=== PATIENT | female | born 1955 | race Caucasian/White ===

== ENCOUNTER 2017-08-01 13:42 | Observation (INO) | payer BC ==
[2017-08-01] MEDS ORDERED: Sodium Chloride 0.9% 1,000 ML IV ONE (13:48)
--- NOTE | 2017-08-01 13:56 | EDM.PDOC ---
ED HPI GENERAL MEDICAL PROBLEM - General Chief Complaint: Syncope Stated Complaint: VERTIGO Time Seen by Provider: 08/01/17 13:44 - History of Present Illness INITIAL COMMENTS - FREE TEXT/NARRATIVE: HISTORY AND PHYSICAL: History of present illness: Patient is a 61-year-old white female history of hypertension who presents after syncopal episode she was at the clinic being evaluated for recent febrile illness she had some routine labs clearance of the blood draw she was discharged and in the elevator when she lost consciousness this was relatively brief she denies any clearly associated trauma and presents now with some generalized weakness she denies chest pain palpitations she denies headache she states she was noted to have blood in her urine but no evidence of infection and other routine lab results were pending. Review of systems: As per history of present illness and below otherwise all systems reviewed and negative. Past medical history: As per history of present illness and as reviewed below otherwise noncontributory. Surgical history: As per history of present illness and as reviewed below otherwise noncontributory. Social history: No reported history of drug or alcohol abuse. Family history: As per history of present illness and as reviewed below otherwise noncontributory. Physical exam: HEENT: Atraumatic, normocephalic, pupils reactive, negative for conjunctival pallor or scleral icterus, mucous membranes moist, throat clear, neck supple, nontender, trachea midline. Lungs: Clear to auscultation, breath sounds equal bilaterally, chest nontender. Heart: S1S2, regular, negative for clicks, rubs, or JVD. Abdomen: Soft, nondistended, nontender. Negative for masses or hepatosplenomegaly. Negative for costovertebral tenderness. Pelvis: Stable nontender. Genitourinary: Deferred. Rectal: Deferred. Extremities: Atraumatic, negative for cords or calf pain. Neurovascular unremarkable. Neuro: Awake, alert, oriented. Cranial nerves II through XII unremarkable. Cerebellum unremarkable. Motor and sensory unremarkable throughout. Exam nonfocal. Diagnostics: CBC CMP PT/INR troponin chest x-ray CT brain CT abdomen and pelvis orthostatic vital signs Therapeutics: Saline 1 L bolus Impression: #1 syncope #2 history of hematuria for 3 history of fever Definitive disposition and diagnosis as appropriate pending reevaluation and review of above. - Related Data Allergies Allergy/AdvReac Type Severity Reaction Status Date / Time No Known Allergies Allergy Verified 08/01/17 14:03 Home Meds: Home Meds Aspirin [Children's Aspirin] 81 mg PO DAILY 11/30/13 [History] Lisinopril 20 mg PO DAILY 11/30/13 [History] Polyethylene Glycol 3350 [MiraLAX] 1 capful PO DAILY 11/30/13 [History] atorvaSTATin Calcium [Atorvastatin Calcium] 10 mg PO DAILY 11/30/13 [History] ED ROS GENERAL - Review of Systems Review Of Systems: ROS reveals no pertinent complaints other than HPI. ED EXAM, GENERAL - Physical Exam Exam: See Below (dictation) Course - Vital Signs Last Recorded V/S: Last Vital Signs Temp 36.8 C 08/01/17 15:19 Pulse 87 08/01/17 15:19 Resp 18 08/01/17 15:19 BP 101/56 L 08/01/17 15:19 Pulse Ox 96 08/01/17 15:19 Orthostatic Blood Pressure [ 98/56 Standing] Orthostatic Blood Pressure [ 93/55 Sitting] Orthostatic Blood Pressure [ 94/55 Supine] - Orders/Labs/Meds Orders: Active Orders 24 hr Category Date Time Status EKG Documentation Completion [RC] STAT Care 08/01/17 13:47 Active Pulse Oximetry [RC] ASDIRECTED Care 08/01/17 13:47 Active Abdomen Pelvis wo Cont [CT] Stat Exams 08/01/17 13:48 Taken CULTURE BLOOD [BC] Stat Lab 08/01/17 14:00 Received CULTURE BLOOD [BC] Stat Lab 08/01/17 14:18 Received UA W/MICROSCOPIC [URIN] Stat Lab 08/01/17 15:19 Ordered Levofloxacin/Dextrose 5%-Water [Levaquin in D5W 750 MG/ Med 08/01/17 15:35 Active 150 ML] 750 mg Premix Bag 1 bag IV ONETIME Blood Culture x2 Reflex Set [OM.PC] Stat Oth 08/01/17 13:57 Ordered Medication Orders Levofloxacin/Dextrose 750 mg/ (Premix) 150 mls @ 100 mls/hr IV ONETIME ONE Stop: 08/01/17 17:04 Labs: Laboratory Tests 08/01/17 08/01/17 08/01/17 Range/Units 14:00 14:00 14:00 WBC 11.09 H (4.0-11.0) K/uL RBC 3.80 L (4.30-5.90) M/uL Hgb 11.9 L (12.0-16.0) g/dL Hct 34.8 L (36.0-46.0) % MCV 91.6 (80.0-98.0) fL MCH 31.3 (27.0-32.0) pg MCHC 34.2 (31.0-37.0) g/dL RDW Std Deviation 42.6 (28.0-62.0) fl RDW Coeff of Ziggy 13 (11.0-15.0) % Plt Count 152 (150-400) K/uL MPV 9.80 (7.40-12.00) fL Neut % (Auto) 82.3 H (48.0-80.0) % Lymph % (Auto) 9.7 L (16.0-40.0) % [place] % (Auto) 7.7 (0.0-15.0) % Eos % (Auto) 0.1 (0.0-7.0) % Baso % (Auto) 0.2 (0.0-1.5) % Neut # (Auto) 9.1 H (1.4-5.7) K/uL Lymph # (Auto) 1.1 (0.6-2.4) K/uL [place] # (Auto) 0.9 H (0.0-0.8) K/uL Eos # (Auto) 0.0 (0.0-0.7) K/uL Baso # (Auto) 0.0 (0.0-0.1) K/uL Nucleated RBC % 0.0 /100WBC Nucleated RBCs # 0 K/uL Lactate 0.7 (0.20-2.00) mmol/L Sodium 137 (136-145) mmol/L Potassium 3.4 L (3.5-5.1) mmol/L Chloride 101 (98-107) mmol/L Carbon Dioxide 21.2 (21.0-32.0) mmol/L BUN 12 (7.0-18.0) mg/dL Creatinine 0.8 (0.6-1.0) mg/dL Est Cr Clr Drug Dosing 69.13 mL/min Estimated GFR (MDRD) > 60.0 ml/min Glucose 139 H (74-106) mg/dL Calcium 8.4 L (8.5-10.1) mg/dL Total Bilirubin 0.6 (0.2-1.0) mg/dL AST 20 (15-37) IU/L ALT 28 (14-63) IU/L Alkaline Phosphatase 69 (46-116) U/L Troponin I < 0.050 (0.000-0.056) ng/mL Total Protein 6.6 (6.4-8.2) g/dL Albumin 3.5 (3.4-5.0) g/dL Globulin 3.1 (2.0-3.5) g/dL Albumin/Globulin Ratio 1.1 L (1.3-2.8) Urine Color Urine Appearance Urine pH (5.0-8.0) Ur Specific [place] (1.001-1.035) Urine Protein (NEGATIVE) mg/dL Urine Glucose (UA) (NEGATIVE) mg/dL Urine Ketones (NEGATIVE) mg/dL Urine Occult Blood (NEGATIVE) Urine Nitrite (NEGATIVE) Urine Bilirubin (NEGATIVE) Urine Urobilinogen (<2.0) EU/dL Ur Leukocyte Esterase (NEGATIVE) 08/01/17 Range/Units 15:19 WBC (4.0-11.0) K/uL RBC (4.30-5.90) M/uL Hgb (12.0-16.0) g/dL Hct (36.0-46.0) % MCV (80.0-98.0) fL MCH (27.0-32.0) pg MCHC (31.0-37.0) g/dL RDW Std Deviation (28.0-62.0) fl RDW Coeff of Ziggy (11.0-15.0) % Plt Count (150-400) K/uL MPV (7.40-12.00) fL Neut % (Auto) (48.0-80.0) % Lymph % (Auto) (16.0-40.0) % [place] % (Auto) (0.0-15.0) % Eos % (Auto) (0.0-7.0) % Baso % (Auto) (0.0-1.5) % Neut # (Auto) (1.4-5.7) K/uL Lymph # (Auto) (0.6-2.4) K/uL [place] # (Auto) (0.0-0.8) K/uL Eos # (Auto) (0.0-0.7) K/uL Baso # (Auto) (0.0-0.1) K/uL Nucleated RBC % /100WBC Nucleated RBCs # K/uL Lactate (0.20-2.00) mmol/L Sodium (136-145) mmol/L Potassium (3.5-5.1) mmol/L Chloride (98-107) mmol/L Carbon Dioxide (21.0-32.0) mmol/L BUN (7.0-18.0) mg/dL Creatinine (0.6-1.0) mg/dL Est Cr Clr Drug Dosing mL/min Estimated GFR (MDRD) ml/min Glucose (74-106) mg/dL Calcium (8.5-10.1) mg/dL Total Bilirubin (0.2-1.0) mg/dL AST (15-37) IU/L ALT (14-63) IU/L Alkaline Phosphatase (46-116) U/L Troponin I (0.000-0.056) ng/mL Total Protein (6.4-8.2) g/dL Albumin (3.4-5.0) g/dL Globulin (2.0-3.5) g/dL Albumin/Globulin Ratio (1.3-2.8) Urine Color YELLOW Urine Appearance CLEAR Urine pH 5.5 (5.0-8.0) Ur Specific [place] 1.020 (1.001-1.035) Urine Protein NEGATIVE (NEGATIVE) mg/dL Urine Glucose (UA) NEGATIVE (NEGATIVE) mg/dL Urine Ketones 15 H (NEGATIVE) mg/dL Urine Occult Blood TRACE-INTACT (NEGATIVE) Urine Nitrite NEGATIVE (NEGATIVE) Urine Bilirubin NEGATIVE (NEGATIVE) Urine Urobilinogen 0.2 (<2.0) EU/dL Ur Leukocyte Esterase NEGATIVE (NEGATIVE) Meds: Medications Generic Name Dose Route Start Last Admin Trade Name Freq PRN Reason Stop Dose Admin Levofloxacin/Dextrose 750 mg/ 150 mls @ 100 mls/hr 08/01/17 15:35 Premix IV 08/01/17 17:04 ONETIME ONE Discontinued Medications Generic Name Dose Route Start Last Admin Trade Name Freq PRN Reason Stop Dose Admin Sodium Chloride 1,000 mls @ 999 mls/hr 08/01/17 13:48 08/01/17 14:00 Normal Saline IV 08/01/17 14:48 999 mls/hr STAT ONE Administration Departure - Departure Time of Disposition: 15:39 Disposition: Refer to Observation Condition: Good Clinical Impression: Pneumonia - Discharge Information Referrals: Shaw Lomeli MD [Primary Care Provider] - Forms: ED Department Discharge - My Orders Last 24 Hours: My Active Orders 08/01/17 13:47 EKG Documentation Completion [RC] STAT Pulse Oximetry [RC] ASDIRECTED 08/01/17 13:48 Abdomen Pelvis wo Cont [CT] Stat 08/01/17 13:57 Blood Culture x2 Reflex Set [OM.PC] Stat 08/01/17 14:00 CULTURE BLOOD [BC] Stat 08/01/17 14:18 CULTURE BLOOD [BC] Stat 08/01/17 15:19 UA W/MICROSCOPIC [URIN] Stat 08/01/17 15:35 Levofloxacin/Dextrose 5%-Water [Levaquin in D5W 750 MG/150 ML] 750 mg Premix Bag 1 bag IV ONETIME - Assessment/Plan Last 24 Hours: My Active Orders 08/01/17 13:47 EKG Documentation Completion [RC] STAT Pulse Oximetry [RC] ASDIRECTED 08/01/17 13:48 Abdomen Pelvis wo Cont [CT] Stat 08/01/17 13:57 Blood Culture x2 Reflex Set [OM.PC] Stat 08/01/17 14:00 CULTURE BLOOD [BC] Stat 08/01/17 14:18 CULTURE BLOOD [BC] Stat 08/01/17 15:19 UA W/MICROSCOPIC [URIN] Stat 08/01/17 15:35 Levofloxacin/Dextrose 5%-Water [Levaquin in D5W 750 MG/150 ML] 750 mg Premix Bag 1 bag IV ONETIME
--- NOTE | 2017-08-01 14:39 | CR ---
Normal chest Clinical history: Chest pain and shortness of breath Comparison: None. Findings: The costophrenic angles are sharp and the cardiac mediastinum is normal and lungs are clear . Cardiac monitoring leads are in place. Impression: No acute cardiac disease
[2017-08-01 14:45] LABS: CHLORIDE,CL 101 mmol/L (98-107); SODIUM,NA 137 mmol/L (136-145)
--- NOTE | 2017-08-01 15:23 | CT ---
CT brain scan Clinical history: Faint Comparison: None Findings: Computed tomographic sections of the brain demonstrate no mass edema hemorrhage or space-oc cupying abnormality. Calvarium and paranasal sinuses and mastoids appear normal. Impression: Normal exam
[2017-08-01] MEDS ORDERED: Levofloxacin/Dextrose 5%-Water 750 MG in Premix Bag 1 BAG IV ONE (15:35)
--- NOTE | 2017-08-01 15:42 | CT ---
CT scan of the abdomen and pelvis Clinical history: Pain possible kidney stone Comparison: No recent. Findings: Images through the lung bases demonstrate a right lower lobe posterior pneumonia. A graft s lito through the abdomen demonstrates normal liver spleen pancreas and incidental single large gal lstone. The kidneys are without evidence of hydronephrosis or hydroureter. Scanning through the lower abdomen into the pelvis and demonstrates a prominent cystic structure beh ind the uterus measuring 68 mm in dimension. No solid mural components are identified. There may be 1 or 2 septations. There is a solitary punctate calcification posteriorly within this lesion Impression: Right lower lung pneumonia posteriorly. No evidence of renal or ureteral calculus. 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
--- NOTE | 2017-08-01 16:13 | PCM.HP ---
H&P History of Present Illness - General Date of Service: 08/01/17 Admit Problem/Dx: Admission Diagnosis/Problem Admission Diagnosis/Problem Pneumonia Source of Information: Patient History Limitations: Reports: No Limitations - History of Present Illness Initial Comments - Free Text/Narative: 61 yo fm with history of HTN, CAD and presumed HLD is admitted for CAP and syncope. She states that for the last 3 days she has had fever ranging up to 102 degrees, chills, weakness. She denies any associated sob, cough, nausea, vomiting, diarrhea, dysuria. She has had some decreased appetite but has been drinking fluids. due to her fevers she decided to book appointment with her pcp at [place] which was today. Following the appointment she was instructed to proceed to lab for blood tests and was told she would be contacted with results. While in the elevator she had syncopal episode that lasted less than 1 minute. She was instructed by [place] provider to proceed to [facility] ED for further evaluation. In the ED she had CBC, CMP, Troponin, INR, CXR, CT brain, CT abdomen pelvis, and Orthostatic vitals done. She was found to have borderline Leukocytosis with WBC cnt 11.1 and hypokalemia with K 3.4. . CXR was negative for acute changes but CT abdomen-pelvis did reveal RLL infiltrate. Her BP has been low ranging from 95-105/50's but orthostatic vitals were relatively stable. She was given IV NS bolus and single dose of Levaquin. - Related Data Allergies/Adverse Reactions: Allergies Allergy/AdvReac Type Severity Reaction Status Date / Time No Known Allergies Allergy Verified 08/01/17 14:03 Home Medications: Home Meds Aspirin [Children's Aspirin] 81 mg PO DAILY 11/30/13 [History] Lisinopril 20 mg PO DAILY 11/30/13 [History] Polyethylene Glycol 3350 [MiraLAX] 1 capful PO DAILY 11/30/13 [History] atorvaSTATin Calcium [Atorvastatin Calcium] 10 mg PO DAILY 11/30/13 [History] Past Medical History HEENT History: Reports: Impaired Vision Cardiovascular History: Reports: High Cholesterol, Hypertension Gastrointestinal History: Reports: Other (See Below) Other Gastrointestinal History: constipation [employer] MANAGER History: Reports: - Past Surgical History HEENT Surgical History: Reports: Tonsillectomy Female Surgical History: Reports: Other (See Below) Other Female Surgeries/Procedures: ovarian cyst removal Social & Family History - Family History Family Medical History: Noncontributory - Tobacco Use Smoking Status *Q: Former Smoker Used Tobacco, but Quit: Yes Month/Year Tobacco Last Used: 02/2010 - Caffeine Use Caffeine Use: Reports: Soda - Recreational Drug Use Recreational Drug Use: No H&P Review of Systems - Review of Systems: Review Of Systems: See Below General: Reports: Fever, Weakness, Decreased Appetite HEENT: Reports: No Symptoms Pulmonary: Reports: No Symptoms Cardiovascular: Reports: No Symptoms Gastrointestinal: Reports: No Symptoms Genitourinary: Reports: No Symptoms Musculoskeletal: Reports: No Symptoms Skin: Reports: No Symptoms Psychiatric: Reports: No Symptoms Neurological: Reports: No Symptoms Hematologic/Lymphatic: Reports: No Symptoms Immunologic: Reports: No Symptoms Exam - Exam Exam: See Below - Vital Signs Vital Signs: Last Vital Signs Temp 36.8 C 08/01/17 15:19 Pulse 87 08/01/17 15:19 Resp 18 08/01/17 15:19 BP 101/56 L 08/01/17 15:19 Pulse Ox 96 08/01/17 15:19 Orthostatic Blood Pressure [ 98/56 Standing] Orthostatic Blood Pressure [ 93/55 Sitting] Orthostatic Blood Pressure [ 94/55 Supine] Weight: 75.296 kg - Exam General: Alert, Oriented, Cooperative HEENT: Conjunctiva Clear, EACs Clear, EOMI, Hearing Intact, Mucosa Moist & [place] , Nares Patent, Normal Nasal Septum, Posterior Pharynx Clear, Pupils Equal, Pupils Reactive Neck: Supple, Trachea Midline Lungs: Other (Asymmetric, absent breath sounds at RML/RLL with coarse crackles, no wheezing) Cardiovascular: Regular Rate, Regular Rhythm GI/Abdominal Exam: Normal Bowel Sounds, Soft, Non-Tender, No Organomegaly Back Exam: Normal Inspection Extremities: Normal Inspection, Normal Capillary Refill Peripheral Pulses: 1+: Dorsalis Pedis (L), Dorsalis Pedis (R) Skin: Warm, Dry, Intact Neurological: Cranial Nerves Intact, Reflexes Equal Bilateral Psychiatric: Alert, Normal Affect, Normal Mood - Patient Data Lab Results Last 24 hrs: Laboratory Results - last 24 hr 08/01/17 08/01/17 08/01/17 Range/Units 14:00 14:00 14:00 WBC 11.09 H (4.0-11.0) K/uL RBC 3.80 L (4.30-5.90) M/uL Hgb 11.9 L (12.0-16.0) g/dL Hct 34.8 L (36.0-46.0) % MCV 91.6 (80.0-98.0) fL MCH 31.3 (27.0-32.0) pg MCHC 34.2 (31.0-37.0) g/dL RDW Std Deviation 42.6 (28.0-62.0) fl RDW Coeff of Ziggy 13 (11.0-15.0) % Plt Count 152 (150-400) K/uL MPV 9.80 (7.40-12.00) fL Neut % (Auto) 82.3 H (48.0-80.0) % Lymph % (Auto) 9.7 L (16.0-40.0) % [place] % (Auto) 7.7 (0.0-15.0) % Eos % (Auto) 0.1 (0.0-7.0) % Baso % (Auto) 0.2 (0.0-1.5) % Neut # (Auto) 9.1 H (1.4-5.7) K/uL Lymph # (Auto) 1.1 (0.6-2.4) K/uL [place] # (Auto) 0.9 H (0.0-0.8) K/uL Eos # (Auto) 0.0 (0.0-0.7) K/uL Baso # (Auto) 0.0 (0.0-0.1) K/uL Nucleated RBC % 0.0 /100WBC Nucleated RBCs # 0 K/uL Lactate 0.7 (0.20-2.00) mmol/L Sodium 137 (136-145) mmol/L Potassium 3.4 L (3.5-5.1) mmol/L Chloride 101 (98-107) mmol/L Carbon Dioxide 21.2 (21.0-32.0) mmol/L BUN 12 (7.0-18.0) mg/dL Creatinine 0.8 (0.6-1.0) mg/dL Est Cr Clr Drug Dosing 69.13 mL/min Estimated GFR (MDRD) > 60.0 ml/min Glucose 139 H (74-106) mg/dL Calcium 8.4 L (8.5-10.1) mg/dL Total Bilirubin 0.6 (0.2-1.0) mg/dL AST 20 (15-37) IU/L ALT 28 (14-63) IU/L Alkaline Phosphatase 69 (46-116) U/L Troponin I < 0.050 (0.000-0.056) ng/mL Total Protein 6.6 (6.4-8.2) g/dL Albumin 3.5 (3.4-5.0) g/dL Globulin 3.1 (2.0-3.5) g/dL Albumin/Globulin Ratio 1.1 L (1.3-2.8) Urine Color Urine Appearance Urine pH (5.0-8.0) Ur Specific [place] (1.001-1.035) Urine Protein (NEGATIVE) mg/dL Urine Glucose (UA) (NEGATIVE) mg/dL Urine Ketones (NEGATIVE) mg/dL Urine Occult Blood (NEGATIVE) Urine Nitrite (NEGATIVE) Urine Bilirubin (NEGATIVE) Urine Urobilinogen (<2.0) EU/dL Ur Leukocyte Esterase (NEGATIVE) Urine RBC (0-2/HPF) Urine WBC (0-5/HPF) Ur Epithelial Cells (NONE-FEW) Urine Bacteria (NEGATIVE) 08/01/17 Range/Units 15:19 WBC (4.0-11.0) K/uL RBC (4.30-5.90) M/uL Hgb (12.0-16.0) g/dL Hct (36.0-46.0) % MCV (80.0-98.0) fL MCH (27.0-32.0) pg MCHC (31.0-37.0) g/dL RDW Std Deviation (28.0-62.0) fl RDW Coeff of Ziggy (11.0-15.0) % Plt Count (150-400) K/uL MPV (7.40-12.00) fL Neut % (Auto) (48.0-80.0) % Lymph % (Auto) (16.0-40.0) % [place] % (Auto) (0.0-15.0) % Eos % (Auto) (0.0-7.0) % Baso % (Auto) (0.0-1.5) % Neut # (Auto) (1.4-5.7) K/uL Lymph # (Auto) (0.6-2.4) K/uL [place] # (Auto) (0.0-0.8) K/uL Eos # (Auto) (0.0-0.7) K/uL Baso # (Auto) (0.0-0.1) K/uL Nucleated RBC % /100WBC Nucleated RBCs # K/uL Lactate (0.20-2.00) mmol/L Sodium (136-145) mmol/L Potassium (3.5-5.1) mmol/L Chloride (98-107) mmol/L Carbon Dioxide (21.0-32.0) mmol/L BUN (7.0-18.0) mg/dL Creatinine (0.6-1.0) mg/dL Est Cr Clr Drug Dosing mL/min Estimated GFR (MDRD) ml/min Glucose (74-106) mg/dL Calcium (8.5-10.1) mg/dL Total Bilirubin (0.2-1.0) mg/dL AST (15-37) IU/L ALT (14-63) IU/L Alkaline Phosphatase (46-116) U/L Troponin I (0.000-0.056) ng/mL Total Protein (6.4-8.2) g/dL Albumin (3.4-5.0) g/dL Globulin (2.0-3.5) g/dL Albumin/Globulin Ratio (1.3-2.8) Urine Color YELLOW Urine Appearance CLEAR Urine pH 5.5 (5.0-8.0) Ur Specific [place] 1.020 (1.001-1.035) Urine Protein NEGATIVE (NEGATIVE) mg/dL Urine Glucose (UA) NEGATIVE (NEGATIVE) mg/dL Urine Ketones 15 H (NEGATIVE) mg/dL Urine Occult Blood TRACE-INTACT (NEGATIVE) Urine Nitrite NEGATIVE (NEGATIVE) Urine Bilirubin NEGATIVE (NEGATIVE) Urine Urobilinogen 0.2 (<2.0) EU/dL Ur Leukocyte Esterase NEGATIVE (NEGATIVE) Urine RBC 0-1 (0-2/HPF) Urine WBC 0-1 (0-5/HPF) Ur Epithelial Cells RARE (NONE-FEW) Urine Bacteria FEW (NEGATIVE) Result Diagrams: 08/01/17 14:00 08/01/17 14:00 Problem List Initiated/Reviewed/Updated: Yes Orders Last 24hrs: Active Orders 24 hr Category Date Time Status Patient Status [ADT] Stat ADT 08/01/17 15:40 Active EKG Documentation Completion [RC] STAT Care 08/01/17 13:47 Active Pulse Oximetry [RC] ASDIRECTED Care 08/01/17 13:47 Active CULTURE BLOOD [BC] Stat Lab 08/01/17 14:00 Received CULTURE BLOOD [BC] Stat Lab 08/01/17 14:18 Received UA W/MICROSCOPIC [URIN] Stat Lab 08/01/17 15:19 Ordered Levofloxacin/Dextrose 5%-Water [Levaquin in D5W 750 MG/ Med 08/01/17 15:35 Active 150 ML] 750 mg Premix Bag 1 bag IV ONETIME Blood Culture x2 Reflex Set [OM.PC] Stat Oth 08/01/17 13:57 Ordered Medication Orders Levofloxacin/Dextrose 750 mg/ (Premix) 150 mls @ 100 mls/hr IV ONETIME ONE Stop: 08/01/17 17:04 Last Admin: 08/01/17 15:41 Dose: 100 mls/hr Assessment/Plan Comment:: 61 yo fm with history of HTN and CAD admitted for CAP and syncope. #CAP #Leukocytosis, presumed secondary to above -seen in RLL on CT Abd-pelvis -WBC cound 11.1K -BC obtained in ED -received IV NS 1 L & Levaquin 750 mg IV single dose in ED Plan: -admit to obs -obtain ABG -continue IV NS at 100 ml/hr -continue Levaquin 750 mg QD -start duonebs PRN for sob -obtain sputum culture -f/u blood cultures #Syncope #Diastolic Hypotension -likely secondary to dehydration -EKG NSR, troponin negative Plan: -cardiac monitoring -serial troponins -repeat ortho vitals #Hypokalemia -administer KCl 40 meq #HTN -hold home Lisnopril and resume when bp increases #CAD -resume home ASA and Atorvastatin diet:regular code: full DVT prophylaxis: Lovenox
[2017-08-01] MEDS ORDERED: Acetaminophen 325 MG Tab PO PRN (16:14)
[2017-08-01] MEDS ORDERED: Albuterol/Ipratropium 3.0-0.5 MG/3 ML Neb Soln NEB PRN (16:14)
[2017-08-01] MEDS ORDERED: Docusate Sodium 100 MG Cap PO PRN (16:14)
[2017-08-01] MEDS ORDERED: Enoxaparin 40 MG/0.4 ML Syringe SUBCUT SCH (16:15)
[2017-08-01] MEDS: Sodium Chloride 0.9% 1,000 ML IV SCH (17:52)
[2017-08-01] MEDS ORDERED: Potassium Chloride 10% 20 MEQ/15 ML Soln 30 ML UD Cup PO ONE (17:59)
[2017-08-02] MEDS: Sodium Chloride 0.9% 1,000 ML IV SCH (04:15)
[2017-08-02 06:32] LABS: CHLORIDE,CL 109 mmol/L (98-107); SODIUM,NA 140 mmol/L (136-145)
[2017-08-02] MEDS ORDERED: Lisinopril 10 MG Tab PO ONE (08:12)
--- NOTE | 2017-08-02 09:36 | PCM.DCSUM1 ---
Discharge Summary - Hospital Course Free Text/Narrative:: 61 yo fm with history of HTN, CAD and presumed HLD is admitted for CAP and syncope. She states that for the last 3 days she has had fever ranging up to 102 degrees, chills, weakness. She denies any associated sob, cough, nausea, vomiting, diarrhea, dysuria. She has had some decreased appetite but has been drinking fluids. Due to her fevers she decided to book appointment with her pcp [facility] which was today. Following the appointment she was instructed to proceed to lab for blood tests and was told she would be contacted with results. While in the elevator she had syncopal episode that lasted less than 1 minute. She was instructed by [place] provider to proceed to [facility] ED for further evaluation. In the ED she had CBC, CMP, Troponin, INR, CXR, CT brain, CT abdomen pelvis, and Orthostatic vitals done. She was found to have borderline Leukocytosis with WBC cnt 11.1 and hypokalemia with K 3.4. . CXR was negative for acute changes but CT abdomen-pelvis did reveal RLL infiltrate. Her BP has been low ranging from 95-105/50's but orthostatic vitals were relatively stable. She was given IV NS bolus and single dose of Levaquin. On the floor she was started on continuous IVF and placed on cardiac monitoring. Following day she felt much better and stated that she was ready to go her home. Her leukocytosis resolved, and she remained afebrile throughout the night. She was discharged home on Levaquin 750 mg QD for 4 days to total 5 days of therapy. Her f/u was scheduled with her PCP for 1 week. Discharge Diagnosis #CAP, RLL, improving #Leukocytosis, resolved -discharge home on Levaquin PO QD for 4 days -consider repeat imaging in 4 weeks #Syncope -likely secondary to dehydration -serial troponin negative -f/u with PCP #First Degree AV Block #PVC -on telemetry, no chest pain/palpitations/sob -educated patient -f/u with PCP #Hypokalemia -corrected #Hx HTN -resume home Lisinopril 10 mg QD #Hx CAD -resume home ASA and Atorvastatin - Discharge Data Discharge Date: 08/02/17 Discharge Disposition: Home, Self-Care 01 Condition: Good - Patient Instructions Diet: Regular Diet as Tolerated Activity: As Tolerated, Rest and Relax Today Driving: May Drive Today Showering/Bathing: May Shower Notify Provider of: Fever, Increased Pain, Swelling and Redness, Drainage, Nausea and/or Vomiting - Discharge Plan Prescriptions/Med Rec: Levofloxacin 750 mg PO DAILY 4 Days #4 tablet Home Medications: Home Meds Aspirin [Children's Aspirin] 81 mg PO BEDTIME 11/30/13 [History] Lisinopril 10 mg PO DAILY 11/30/13 [History] Polyethylene Glycol 3350 [MiraLAX] 1 capful PO DAILY 11/30/13 [History] atorvaSTATin Calcium [Atorvastatin Calcium] 10 mg PO BEDTIME 11/30/13 [History] Levofloxacin 750 mg PO DAILY 4 Days #4 tablet 08/02/17 [Rx] Patient Handouts: Community-Acquired Pneumonia, Adult, [id number] Referrals: Shaw Lomeli MD [Primary Care Provider] - 08/09/17 1:45 pm - Discharge Summary/Plan Comment DC Time >30 min.: No - General Info Date of Service: 08/02/17 Functional Status: Reports: Pain Controlled, Tolerating Diet, Ambulating, Urinating - Review of Systems General: Reports: No Symptoms HEENT: Reports: No Symptoms Pulmonary: Reports: No Symptoms Cardiovascular: Reports: No Symptoms Gastrointestinal: Reports: No Symptoms Genitourinary: Reports: No Symptoms Musculoskeletal: Reports: No Symptoms Skin: Reports: No Symptoms Neurological: Reports: No Symptoms Psychiatric: Reports: No Symptoms - Patient Data Vitals - Most Recent: Last Vital Signs Temp 36.6 C 08/02/17 04:00 Pulse 71 08/02/17 04:00 Resp 16 08/02/17 04:00 BP 110/52 L 08/02/17 09:09 Pulse Ox 95 08/02/17 04:00 Orthostatic Blood Pressure [ 98/56 Standing] Orthostatic Blood Pressure [ 93/55 Sitting] Orthostatic Blood Pressure [ 94/55 Supine] Weight - Most Recent: 75.296 kg I&O - Last 24 hours: Intake & Output 08/01/17 08/02/17 08/02/17 22:59 06:59 14:59 Intake Total 2070 Output Total 1750 Balance 320 Lab Results - Last 24 hrs: Laboratory Results - last 24 hr 08/01/17 08/01/17 08/01/17 Range/Units 14:00 14:00 14:00 WBC 11.09 H (4.0-11.0) K/uL RBC 3.80 L (4.30-5.90) M/uL Hgb 11.9 L (12.0-16.0) g/dL Hct 34.8 L (36.0-46.0) % MCV 91.6 (80.0-98.0) fL MCH 31.3 (27.0-32.0) pg MCHC 34.2 (31.0-37.0) g/dL RDW Std Deviation 42.6 (28.0-62.0) fl RDW Coeff of Ziggy 13 (11.0-15.0) % Plt Count 152 (150-400) K/uL MPV 9.80 (7.40-12.00) fL Neut % (Auto) 82.3 H (48.0-80.0) % Lymph % (Auto) 9.7 L (16.0-40.0) % [place] % (Auto) 7.7 (0.0-15.0) % Eos % (Auto) 0.1 (0.0-7.0) % Baso % (Auto) 0.2 (0.0-1.5) % Neut # (Auto) 9.1 H (1.4-5.7) K/uL Lymph # (Auto) 1.1 (0.6-2.4) K/uL [place] # (Auto) 0.9 H (0.0-0.8) K/uL Eos # (Auto) 0.0 (0.0-0.7) K/uL Baso # (Auto) 0.0 (0.0-0.1) K/uL Nucleated RBC % 0.0 /100WBC Nucleated RBCs # 0 K/uL ABG pH (7.35-7.45) ABG pCO2 (35-45) mmHG ABG pO2 (75-100) mmHG ABG HCO3 (22-26) mEq/L ABG Total CO2 ABG Base Excess (-2.0-2.0) Lactate 0.7 (0.20-2.00) mmol/L Sodium 137 (136-145) mmol/L Potassium 3.4 L (3.5-5.1) mmol/L Chloride 101 (98-107) mmol/L Carbon Dioxide 21.2 (21.0-32.0) mmol/L BUN 12 (7.0-18.0) mg/dL Creatinine 0.8 (0.6-1.0) mg/dL Est Cr Clr Drug Dosing 69.13 mL/min Estimated GFR (MDRD) > 60.0 ml/min Glucose 139 H (74-106) mg/dL Calcium 8.4 L (8.5-10.1) mg/dL Magnesium (1.5-2.0) mg/dL Total Bilirubin 0.6 (0.2-1.0) mg/dL AST 20 (15-37) IU/L ALT 28 (14-63) IU/L Alkaline Phosphatase 69 (46-116) U/L Troponin I < 0.050 (0.000-0.056) ng/mL Total Protein 6.6 (6.4-8.2) g/dL Albumin 3.5 (3.4-5.0) g/dL Globulin 3.1 (2.0-3.5) g/dL Albumin/Globulin Ratio 1.1 L (1.3-2.8) Urine Color Urine Appearance Urine pH (5.0-8.0) Ur Specific [place] (1.001-1.035) Urine Protein (NEGATIVE) mg/dL Urine Glucose (UA) (NEGATIVE) mg/dL Urine Ketones (NEGATIVE) mg/dL Urine Occult Blood (NEGATIVE) Urine Nitrite (NEGATIVE) Urine Bilirubin (NEGATIVE) Urine Urobilinogen (<2.0) EU/dL Ur Leukocyte Esterase (NEGATIVE) Urine RBC (0-2/HPF) Urine WBC (0-5/HPF) Ur Epithelial Cells (NONE-FEW) Urine Bacteria (NEGATIVE) 08/01/17 08/01/17 08/01/17 Range/Units 14:00 15:19 18:05 WBC (4.0-11.0) K/uL RBC (4.30-5.90) M/uL Hgb (12.0-16.0) g/dL Hct (36.0-46.0) % MCV (80.0-98.0) fL MCH (27.0-32.0) pg MCHC (31.0-37.0) g/dL RDW Std Deviation (28.0-62.0) fl RDW Coeff of Ziggy (11.0-15.0) % Plt Count (150-400) K/uL MPV (7.40-12.00) fL Neut % (Auto) (48.0-80.0) % Lymph % (Auto) (16.0-40.0) % [place] % (Auto) (0.0-15.0) % Eos % (Auto) (0.0-7.0) % Baso % (Auto) (0.0-1.5) % Neut # (Auto) (1.4-5.7) K/uL Lymph # (Auto) (0.6-2.4) K/uL [place] # (Auto) (0.0-0.8) K/uL Eos # (Auto) (0.0-0.7) K/uL Baso # (Auto) (0.0-0.1) K/uL Nucleated RBC % /100WBC Nucleated RBCs # K/uL ABG pH (7.35-7.45) ABG pCO2 (35-45) mmHG ABG pO2 (75-100) mmHG ABG HCO3 (22-26) mEq/L ABG Total CO2 ABG Base Excess (-2.0-2.0) Lactate (0.20-2.00) mmol/L Sodium (136-145) mmol/L Potassium (3.5-5.1) mmol/L Chloride (98-107) mmol/L Carbon Dioxide (21.0-32.0) mmol/L BUN (7.0-18.0) mg/dL Creatinine (0.6-1.0) mg/dL Est Cr Clr Drug Dosing mL/min Estimated GFR (MDRD) ml/min Glucose (74-106) mg/dL Calcium (8.5-10.1) mg/dL Magnesium 1.6 (1.5-2.0) mg/dL Total Bilirubin (0.2-1.0) mg/dL AST (15-37) IU/L ALT (14-63) IU/L Alkaline Phosphatase (46-116) U/L Troponin I < 0.050 (0.000-0.056) ng/mL Total Protein (6.4-8.2) g/dL Albumin (3.4-5.0) g/dL Globulin (2.0-3.5) g/dL Albumin/Globulin Ratio (1.3-2.8) Urine Color YELLOW Urine Appearance CLEAR Urine pH 5.5 (5.0-8.0) Ur Specific [place] 1.020 (1.001-1.035) Urine Protein NEGATIVE (NEGATIVE) mg/dL Urine Glucose (UA) NEGATIVE (NEGATIVE) mg/dL Urine Ketones 15 H (NEGATIVE) mg/dL Urine Occult Blood TRACE-INTACT (NEGATIVE) Urine Nitrite NEGATIVE (NEGATIVE) Urine Bilirubin NEGATIVE (NEGATIVE) Urine Urobilinogen 0.2 (<2.0) EU/dL Ur Leukocyte Esterase NEGATIVE (NEGATIVE) Urine RBC 0-1 (0-2/HPF) Urine WBC 0-1 (0-5/HPF) Ur Epithelial Cells RARE (NONE-FEW) Urine Bacteria FEW (NEGATIVE) 08/01/17 08/02/17 08/02/17 Range/Units 19:50 06:08 06:08 WBC 6.20 (4.0-11.0) K/uL RBC 3.46 L (4.30-5.90) M/uL Hgb 10.8 L (12.0-16.0) g/dL Hct 31.9 L (36.0-46.0) % MCV 92.2 (80.0-98.0) fL MCH 31.2 (27.0-32.0) pg MCHC 33.9 (31.0-37.0) g/dL RDW Std Deviation 43.2 (28.0-62.0) fl RDW Coeff of Ziggy 13 (11.0-15.0) % Plt Count 127 L (150-400) K/uL MPV 9.10 (7.40-12.00) fL Neut % (Auto) 74.7 (48.0-80.0) % Lymph % (Auto) 16.8 (16.0-40.0) % [place] % (Auto) 8.1 (0.0-15.0) % Eos % (Auto) 0.2 (0.0-7.0) % Baso % (Auto) 0.2 (0.0-1.5) % Neut # (Auto) 4.6 (1.4-5.7) K/uL Lymph # (Auto) 1.0 (0.6-2.4) K/uL [place] # (Auto) 0.5 (0.0-0.8) K/uL Eos # (Auto) 0.0 (0.0-0.7) K/uL Baso # (Auto) 0.0 (0.0-0.1) K/uL Nucleated RBC % 0.0 /100WBC Nucleated RBCs # 0 K/uL ABG pH 7.450 (7.35-7.45) ABG pCO2 35 (35-45) mmHG ABG pO2 58 L (75-100) mmHG ABG HCO3 25 (22-26) mEq/L ABG Total CO2 22.3 ABG Base Excess 0.8 (-2.0-2.0) Lactate (0.20-2.00) mmol/L Sodium 140 (136-145) mmol/L Potassium 4.2 (3.5-5.1) mmol/L Chloride 109 H (98-107) mmol/L Carbon Dioxide 23.8 (21.0-32.0) mmol/L BUN 9 (7.0-18.0) mg/dL Creatinine 0.8 (0.6-1.0) mg/dL Est Cr Clr Drug Dosing 69.13 mL/min Estimated GFR (MDRD) > 60.0 ml/min Glucose 116 H (74-106) mg/dL Calcium 7.9 L (8.5-10.1) mg/dL Magnesium (1.5-2.0) mg/dL Total Bilirubin (0.2-1.0) mg/dL AST (15-37) IU/L ALT (14-63) IU/L Alkaline Phosphatase (46-116) U/L Troponin I (0.000-0.056) ng/mL Total Protein (6.4-8.2) g/dL Albumin (3.4-5.0) g/dL Globulin (2.0-3.5) g/dL Albumin/Globulin Ratio (1.3-2.8) Urine Color Urine Appearance Urine pH (5.0-8.0) Ur Specific [place] (1.001-1.035) Urine Protein (NEGATIVE) mg/dL Urine Glucose (UA) (NEGATIVE) mg/dL Urine Ketones (NEGATIVE) mg/dL Urine Occult Blood (NEGATIVE) Urine Nitrite (NEGATIVE) Urine Bilirubin (NEGATIVE) Urine Urobilinogen (<2.0) EU/dL Ur Leukocyte Esterase (NEGATIVE) Urine RBC (0-2/HPF) Urine WBC (0-5/HPF) Ur Epithelial Cells (NONE-FEW) Urine Bacteria (NEGATIVE) 08/02/17 Range/Units 06:08 WBC (4.0-11.0) K/uL RBC (4.30-5.90) M/uL Hgb (12.0-16.0) g/dL Hct (36.0-46.0) % MCV (80.0-98.0) fL MCH (27.0-32.0) pg MCHC (31.0-37.0) g/dL RDW Std Deviation (28.0-62.0) fl RDW Coeff of Ziggy (11.0-15.0) % Plt Count (150-400) K/uL MPV (7.40-12.00) fL Neut % (Auto) (48.0-80.0) % Lymph % (Auto) (16.0-40.0) % [place] % (Auto) (0.0-15.0) % Eos % (Auto) (0.0-7.0) % Baso % (Auto) (0.0-1.5) % Neut # (Auto) (1.4-5.7) K/uL Lymph # (Auto) (0.6-2.4) K/uL [place] # (Auto) (0.0-0.8) K/uL Eos # (Auto) (0.0-0.7) K/uL Baso # (Auto) (0.0-0.1) K/uL Nucleated RBC % /100WBC Nucleated RBCs # K/uL ABG pH (7.35-7.45) ABG pCO2 (35-45) mmHG ABG pO2 (75-100) mmHG ABG HCO3 (22-26) mEq/L ABG Total CO2 ABG Base Excess (-2.0-2.0) Lactate (0.20-2.00) mmol/L Sodium (136-145) mmol/L Potassium (3.5-5.1) mmol/L Chloride (98-107) mmol/L Carbon Dioxide (21.0-32.0) mmol/L BUN (7.0-18.0) mg/dL Creatinine (0.6-1.0) mg/dL Est Cr Clr Drug Dosing mL/min Estimated GFR (MDRD) ml/min Glucose (74-106) mg/dL Calcium (8.5-10.1) mg/dL Magnesium (1.5-2.0) mg/dL Total Bilirubin (0.2-1.0) mg/dL AST (15-37) IU/L ALT (14-63) IU/L Alkaline Phosphatase (46-116) U/L Troponin I < 0.050 (0.000-0.056) ng/mL Total Protein (6.4-8.2) g/dL Albumin (3.4-5.0) g/dL Globulin (2.0-3.5) g/dL Albumin/Globulin Ratio (1.3-2.8) Urine Color Urine Appearance Urine pH (5.0-8.0) Ur Specific [place] (1.001-1.035) Urine Protein (NEGATIVE) mg/dL Urine Glucose (UA) (NEGATIVE) mg/dL Urine Ketones (NEGATIVE) mg/dL Urine Occult Blood (NEGATIVE) Urine Nitrite (NEGATIVE) Urine Bilirubin (NEGATIVE) Urine Urobilinogen (<2.0) EU/dL Ur Leukocyte Esterase (NEGATIVE) Urine RBC (0-2/HPF) Urine WBC (0-5/HPF) Ur Epithelial Cells (NONE-FEW) Urine Bacteria (NEGATIVE) Med Orders - Current: Current Medications Acetaminophen (Tylenol) 650 mg PO Q4H PRN PRN Reason: Pain (Mild 1-3)/fever Albuterol/Ipratropium (Duoneb 3.0-0.5 Mg/3 Ml) 3 ml NEB Q4HRRT PRN PRN Reason: Shortness Of Breath/wheezing Docusate Sodium (Colace) 100 mg PO BID PRN PRN Reason: Constipation Enoxaparin Sodium (Lovenox) 40 mg SUBCUT Q24H [facility] Last Admin: 08/01/17 18:30 Dose: 40 mg Sodium Chloride (Normal Saline) 1,000 mls @ 100 mls/hr IV ASDIRECTED [facility] Last Admin: 08/02/17 04:15 Dose: 100 mls/hr Levofloxacin/Dextrose 750 mg/ (Premix) 150 mls @ 100 mls/hr IV Q24H [facility] Discontinued Medications Sodium Chloride (Normal Saline) 1,000 mls @ 999 mls/hr IV STAT ONE Stop: 08/01/17 14:48 Last Admin: 08/01/17 14:00 Dose: 999 mls/hr Levofloxacin/Dextrose 750 mg/ (Premix) 150 mls @ 100 mls/hr IV ONETIME ONE Stop: 08/01/17 17:04 Last Admin: 08/01/17 15:41 Dose: 100 mls/hr Lisinopril (Prinivil) 10 mg PO ONETIME ONE Stop: 08/02/17 08:13 Last Admin: 08/02/17 09:09 Dose: 10 mg Potassium Chloride (Potassium Chloride) 40 meq PO ONETIME ONE Stop: 08/01/17 18:00 Last Admin: 08/01/17 18:30 Dose: 40 meq - Exam Physical Findings Comments:: General: Alert, Oriented, Cooperative HEENT: Conjunctiva Clear, EACs Clear, EOMI, Hearing Intact, Mucosa Moist & [place] , Nares Patent, Normal Nasal Septum, Posterior Pharynx Clear, Pupils Equal, Pupils Reactive Neck: Supple, Trachea Midline Lungs: Other (Asymmetric, absent breath sounds at RML/RLL with coarse crackles, no wheezing) Cardiovascular: Regular Rate, Regular Rhythm GI/Abdominal Exam: Normal Bowel Sounds, Soft, Non-Tender, No Organomegaly Back Exam: Normal Inspection Extremities: Normal Inspection, Normal Capillary Refill Peripheral Pulses: 1+: Dorsalis Pedis (L), Dorsalis Pedis (R) Skin: Warm, Dry, Intact Neurological: Cranial Nerves Intact, Reflexes Equal Bilateral Psychiatric: Alert, Normal Affect, Normal Mood
[2017-08-02] MEDS ORDERED: Levofloxacin/Dextrose 5%-Water 750 MG in Premix Bag 1 BAG IV SCH (15:00)
== END 2017-08-02 11:25 | disposition home or self-care (01) ==
LOC: MW.ED 13:42 → MW.MS 16:44
PROVIDERS: ADMIT Internal Medicine; ATTEND Internal Medicine
DX: J18.9 Pneumonia, unspecified organism (principal); R55 Syncope and collapse; I10 Essential (primary) hypertension; I25.10 Atherosclerotic heart disease of native coronary artery without angina pectoris; D72.829 Elevated white blood cell count, unspecified; I44.0 Atrioventricular block, first degree; E87.6 Hypokalemia; E78.00 Pure hypercholesterolemia, unspecified; I95.9 Hypotension, unspecified; Z87.891 Personal history of nicotine dependence; Z79.82 Long term (current) use of aspirin
CPT/HCPCS: 36415; 36600; 70450; 71045; 74176; 80048; 80053; 81001; 82803; 83605; 83735; 84484; 85025; 87040; 93005; 96361; 96365; 99285; A9270; J1650; J1956; J7040; 96372; G0378

== ENCOUNTER 2018-08-03 06:35 | Day surgery (SDC) | payer BC ==
[~2018-08-03 06:35] MED LIST: Lactated Ringers 1,000 ML IV SCH; Sodium Chloride 0.9% 10 ML SDV IV PRN; Sodium Chloride 0.9% 10 ML Syringe FLUSH PRN; Sodium Chloride 0.9% 2.5 ML Syringe FLUSH PRN; ceFAZolin 2 GM in Premix Bag 1 BAG IV ONE
[2018-08-03] MEDS ORDERED: fentaNYL 250 MCG/5 ML SDV ONE (07:08)
[2018-08-03] MEDS ORDERED: Midazolam 1 MG/ML 2 ML SDV ONE (07:08)
[2018-08-03] MEDS ORDERED: Propofol 200 MG/20 ML SDV ONE (07:08)
--- NOTE | 2018-08-03 07:16 | PCM.PREANE ---
Preanesthetic Assessment - Anesthesia/Transfusion/Family Hx Anesthesia History: Prior Anesthesia Without Reaction Other Type of Anesthesia Reaction Comment: PT STATES HER SISTER HAD PROBLEMS WAKING UP AFTER ANESTHESIA Family History of Anesthesia Reaction: No Transfusion History: No Prior Transfusion(s) Intubation History: Unknown - Review of Systems General: No Symptoms Pulmonary: No Symptoms Cardiovascular: No Symptoms Gastrointestinal: No Symptoms Neurological: No Symptoms Other: Reports: None - Physical Assessment O2 Sat by Pulse Oximetry: 96 Respiratory Rate: 15 Vital Signs: Last Vital Signs Temp 36.7 C 08/03/18 06:55 Pulse 54 L 08/03/18 06:55 Resp 15 08/03/18 06:55 BP 124/66 08/03/18 06:55 Pulse Ox 96 08/03/18 06:55 Height: 5 ft 6 in Weight: 76.657 kg ASA Class: 2 Mental Status: Alert & Oriented x3 Airway Class: Mallampati = 2 Dentition: Reports: Normal Dentition Thyro-Mental Finger Breadths: 3 Mouth Opening Finger Breadths: 3 ROM/Head Extension: Full Lungs: Clear to Auscultation, Normal Respiratory Effort Cardiovascular: Regular Rate, Regular Rhythm - Allergies Allergies/Adverse Reactions: Allergies Allergy/AdvReac Type Severity Reaction Status Date / Time No Known Allergies Allergy Verified 07/31/18 12:29 - Blood Blood Available: No - Anesthesia Plan Pre-Op Medication Ordered: None - Acknowledgements Anesthesia Type Planned: General Anesthesia Pt an Appropriate Candidate for the Planned Anesthesia: Yes Alternatives and Risks of Anesthesia Discussed w Pt/Guardian: Yes Pt/Guardian Understands and Agrees with Anesthesia Plan: Yes PreAnesthesia Questionnaire HEENT History: Reports: Other (See Below) Other HEENT History: wears glasses Cardiovascular History: Reports: High Cholesterol, Hypertension, Other (See Below) (moderate coronary disease on CT scan. Sister had stents placed (family history)) Respiratory History: Reports: None Gastrointestinal History: Reports: Cholelithiasis, Other (See Below) Other Gastrointestinal History: occasional heartburn Genitourinary History: Reports: None [employer] History: Reports: Musculoskeletal History: Reports: None Neurological History: Reports: None Psychiatric History: Reports: Depression Endocrine/Metabolic History: Reports: None Hematologic History: Reports: None Immunologic History: Reports: None Oncologic (Cancer) History: Reports: None Dermatologic History: Reports: None - Infectious Disease History Infectious Disease History: Reports: Chicken Pox - Past Surgical History Head Surgeries/Procedures: Reports: None HEENT Surgical History: Reports: Tonsillectomy Cardiovascular Surgical History: Reports: None Respiratory Surgical History: Reports: None GI Surgical History: Reports: Other (See Below) Other GI Surgeries/Procedures: excision of pilonidal cyst Female Surgical History: Reports: Hysterectomy, Salpingo-Oophorectomy Endocrine Surgical History: Reports: None Neurological Surgical History: Reports: None Musculoskeletal Surgical History: Reports: None Oncologic Surgical History: Reports: None Dermatological Surgical History: Reports: None - SUBSTANCE USE Smoking Status *Q: Former Smoker (quit 8 years ago) Tobacco Use Within Last Twelve Months: No Days Per Week of Alcohol Use: 7 Number of Drinks Per Day: 1 Total Drinks Per Week: 7 Recreational Drug Use History: No - HOME MEDS Home Medications: Home Meds Aspirin [Children's Aspirin] 81 mg PO BEDTIME 11/30/13 [History] Lisinopril 10 mg PO DAILY 11/30/13 [History] atorvaSTATin Calcium [Atorvastatin Calcium] 40 mg PO BEDTIME 11/30/13 [History] Cholecalciferol (Vitamin D3) [Vitamin D3] 4,000 units PO DAILY 07/31/18 [History ] Nitroglycerin 0.4 mg SL ASDIRECTED PRN 07/31/18 [History] - CURRENT (IN HOUSE) MEDS Current Meds: Current Medications Lactated Ringer's (Ringers, Lactated) 1,000 mls @ 125 mls/hr IV ASDIRECTED [facility] Last Admin: 08/03/18 07:10 Dose: 125 mls/hr Sodium Chloride (Saline Flush) 10 ml FLUSH ASDIRECTED PRN PRN Reason: Keep Vein Open Sodium Chloride (Saline Flush) 2.5 ml FLUSH ASDIRECTED PRN PRN Reason: Keep Vein Open Sodium Chloride (Normal Saline) 10 ml IV ASDIRECTED PRN PRN Reason: IV Use Discontinued Medications Cefazolin Sodium/Dextrose 2 gm (/ Premix) 50 mls @ 100 mls/hr IV ONETIME ONE Stop: 07/31/18 09:24
[2018-08-03] MEDS ORDERED: Bupivacaine 0.5% 30 ML SDV ONE (07:26)
[2018-08-03] MEDS ORDERED: HYDROmorphone 2 MG/ML SDV IVPUSH ONE (08:27)
[2018-08-03] MEDS ORDERED: Ondansetron 4 MG/2 ML SDV IVPUSH ONE (08:27)
[2018-08-03] MEDS ORDERED: fentaNYL 100 MCG/2 ML SDV IVPUSH PRN (08:27)
[2018-08-03] MEDS ORDERED: Glycopyrrolate 0.2 MG/ML SDV ONE ×2 (08:53→09:09)
[2018-08-03] MEDS ORDERED: Esmolol 100 MG/10 ML SDV ONE (08:53)
[2018-08-03] MEDS ORDERED: Neostigmine Methylsulfate 1 MG/ML 5 ML Syringe ONE (08:53)
[2018-08-03] MEDS ORDERED: Dexamethasone 4 MG/ML 5 ML MDV ONE (08:53)
[2018-08-03] MEDS ORDERED: Ondansetron 4 MG/2 ML SDV ONE (08:53)
[2018-08-03] MEDS ORDERED: Rocuronium 100 MG/10 ML Syringe ONE (08:53)
[2018-08-03] MEDS ORDERED: ceFAZolin/Dextrose,Iso-Osmotic 2 GM/50 ML Duplex Bag IV ONE (08:54)
--- NOTE | 2018-08-03 09:24 | PCM.OPNOTE ---
- General Post-Op/Procedure Note Date of Surgery/Procedure: 08/03/18 Operative Procedure(s): Laparoscopic cholecystectomy Findings: distended gallbladder with omental attachments. Contained a large stone in the neck. Pre Op Diagnosis: Symptomatic cholelithiasis Post-Op Diagnosis: same Anesthesia Technique: General ET Tube Primary Surgeon: Shelbi Juarez Fluid Replacement, Intraop: 1,000 Output, Urine Amount: 150 EBL in mLs: 10 Condition: Good
[2018-08-03] MEDS ORDERED: Acetaminophen/oxyCODONE 325-5 MG Tab PO PRN (11:28)
[2018-08-03] MEDS ORDERED: Acetaminophen/oxyCODONE 325-5 MG Tab ONE (11:37)
--- NOTE | 2018-08-03 12:27 | OR ---
SURGEON: SHELBI JUAREZ MD DATE OF PROCEDURE: 08/03/2018 PREOPERATIVE DIAGNOSIS: Symptomatic cholelithiasis. POSTOPERATIVE DIAGNOSIS: Symptomatic cholelithiasis. PROCEDURE PERFORMED: Laparoscopic cholecystectomy. PRIMARY SURGEON: Shelbi Juarez MD. ANESTHESIA: General endotracheal anesthesia. FLUIDS: 1000 mL crystalloid. ESTIMATED BLOOD LOSS: 10 mL. URINE OUTPUT: 150 mL. FINDINGS: Grossly enlarged and distended gallbladder containing a large stone in the neck. COMPLICATIONS: None. INDICATIONS: The patient is a 62-year-old female who presents with symptomatic cholelithiasis. I explained the need for cholecystectomy. I will attempt it laparoscopically, but should I be unable to perform it safely, she understood that we would convert to open. I explained the procedure, expected perioperative course, and risks including bleeding, infection, or damage to surrounding structures. She verbalized understanding and wishes to proceed. PROCEDURE IN DETAIL: The patient was brought into the OR and placed on the OR table in supine position. A time-out was completed verifying the patient's name, age, date of , allergies, and procedure to be performed. General endotracheal anesthesia was induced. The left arm was tucked at the patient's side and a Cordero catheter placed. The abdomen was prepped and draped in usual standard fashion. I anesthetized the infraumbilical fold with 0.5% Marcaine plain. An 11 blade was used to make an incision along this fold. Cautery was used to dissect down to the level of the subcutaneous fat. I bluntly dissected down to the level of fascia. The fascia was elevated with Keanu's and incised sharply. I dissected down to the peritoneum. This was elevated with hemostats and incised. Stay sutures were then placed on either side of the abdominal wall fascia with 0 Vicryl suture. I inserted a 12 mm Ashia trocar into the abdomen. The abdomen was insufflated and I inserted a 5 mm 30 degree scope. I inspected the area underneath my initial trocar placement and no damage to surrounding structures was noted. 5 mm trocars were placed in the following locations under direct visualization; one in the epigastric area, one in the right flank, and one 2 fingerbreadths below the right subcostal margin in the midclavicular line. The patient was placed into reverse Trendelenburg position. The dome of the gallbladder was grasped and elevated cranially. There were omental adhesions along the body of the gallbladder. These were taken down with blunt dissection and hook cautery. The gallbladder itself appeared distended and contained a large stone in the neck. I grasped the infundibulum and started my dissection. I was able to clear away all of the peritoneal attachments around the cystic duct and artery. I then cleared away one-third of the cystic plate. A photograph was taken. I then triply clipped and ligated my cystic duct. I doubly clipped and ligated my cystic artery. The remainder of the gallbladder wall attachments to the cystic plate were taken down with electrocautery. The gallbladder was then placed in an EndoCatch bag and removed through the infraumbilical port site. I placed my Ashia trocar back into the abdomen and inspected my operative field. I irrigated the right upper quadrant with 500 mL of normal saline until it ran clear. On inspection of the liver bed, it was slightly oozy. I used electrocautery to control most of the bleeding. I then placed a piece of endoscopic cavity into the liver bed. The wound was then hemostatic. I inspected my clips. There was no evidence of any bile leakage and the clips were in good position. The 5 mm trocars were then removed and the abdomen allowed to desufflate. I removed the 12 mm trocar. The fascia at the infraumbilical port site was closed with interrupted 0 Vicryl sutures. The subcutaneous fat layer was closed with an interrupted 3-0 Vicryl stitch. The skin was closed with a running 4-0 Monocryl suture. The 5 mm trocar sites were closed with interrupted 4-0 Monocryl suture. Steri-Strips and sterile dressings were applied. The patient tolerated the procedure well and was transferred to the PACU in stable condition. All counts were complete and correct at the end of the case. ABHISHEK BRUNO /[id number]
== END 2018-08-03 12:30 | disposition home or self-care (01) ==
LOC: MW.SDS 06:35
PROVIDERS: ATTEND Surgery
DX: K80.10 Calculus of gallbladder with chronic cholecystitis without obstruction (principal); K82.8 Other specified diseases of gallbladder; I10 Essential (primary) hypertension; I25.10 Atherosclerotic heart disease of native coronary artery without angina pectoris; E78.00 Pure hypercholesterolemia, unspecified; E55.9 Vitamin D deficiency, unspecified; F32.9 Major depressive disorder, single episode, unspecified; M67.441 Ganglion, right hand; Z87.891 Personal history of nicotine dependence; Z79.82 Long term (current) use of aspirin; Z79.899 Other long term (current) drug therapy
CPT/HCPCS: 47562; A9270; J0131; J0690; J1100; J2001; J2250; J2405; J2704; J3010; J3490; J7120; 00790; 88304

== ENCOUNTER 2018-10-24 11:08 | Emergency (ER) | payer BC ==
[2018-10-24] MEDS ORDERED: Sodium Chloride 0.9% 1,000 ML IV ONE (11:12)
[2018-10-24] MEDS ORDERED: Meclizine 25 MG Tab PO ONE (11:22)
--- NOTE | 2018-10-24 12:00 | EDM.PDOC ---
ED HPI GENERAL MEDICAL PROBLEM - General Chief Complaint: Neuro Symptoms/Deficits Stated Complaint: VERTIGO Time Seen by Provider: 10/24/18 11:14 Source of Information: Reports: Patient History Limitations: Reports: No Limitations - History of Present Illness INITIAL COMMENTS - FREE TEXT/NARRATIVE: HISTORY AND PHYSICAL: History of present illness: Patient is a 62-year-old female who presents to the emergency room with complaints of dizziness and right-sided facial paresthesia. She reports that she has been diagnosed with benign paroxysmal positional vertigo. Reports this diagnosis was made by Dr. Birmingham. She also was told she had a vitamin D deficiency at that time, was given a 6 week regiment of vitamin D and now takes [id number] vitamin D supplementation. She states this dizziness she has today is different from previous experience with this. Describes the dizziness as intermittent and more bothersome when turning her head to the right or making quick movements. Denies any neck pain or stiffness. Denies any injury, trauma or falls. Patient denies any fever, chills, headache, change in vision, syncope or near syncope. Denies any chest pain, back pain, shortness of breath or cough. Denies any abdominal pain, nausea, vomiting, diarrhea, constipation or dysuria. Patient has been eating and drinking appropriately. Review of systems: As per history of present illness and below otherwise all systems reviewed and negative. Past medical history: As per history of present illness and as reviewed below otherwise noncontributory. Surgical history: As per history of present illness and as reviewed below otherwise noncontributory. Social history: See social history for further information Family history: As per history of present illness and as reviewed below otherwise noncontributory. Physical exam: General: Well-developed and well-nourished 62-year-old female. Alert and oriented. Nontoxic appearing and in no acute distress. HEENT: Atraumatic, normocephalic, pupils equal and reactive bilaterally, negative for conjunctival pallor or scleral icterus, mucous membranes moist, TMs normal bilaterally, throat clear, neck supple, nontender, trachea midline. No drooling or trismus noted. No meningeal signs. No hot potato voice noted. Lungs: Clear to auscultation, breath sounds equal bilaterally, chest nontender. Heart: S1S2, regular rate and rhythm without overt murmur Abdomen: Soft, nondistended, nontender. Negative for masses or hepatosplenomegaly. Negative for costovertebral tenderness. Pelvis: Stable nontender. Skin: Intact, warm, dry. No lesions or rashes noted. Extremities: Atraumatic, moves all extremities per self without difficulty or deficits, negative for cords or calf pain. Neurovascular unremarkable. Neuro: Awake, alert, oriented. Cranial nerves II through XII unremarkable. Cerebellum unremarkable. Motor and sensory unremarkable throughout. Exam nonfocal. Notes: Lab work is unremarkable. Head CT shows no acute findings. She states she does feel improved after the meclizine and IV fluids. Admission was offered/ discussed. She declines at this time. She states previously she had been given a sheet on how to perform exercises at home for her BPPV to alleviate symptoms. We discussed possibly doing some physical therapy until she can see Dr. Birmingham on November 07. Supportive care measures were reviewed and discussed. Voices understanding and is agreeable to plan of care. Denies any further questions or concerns at this time. Diagnostics: CBC, CMP, Therapeutics: IV fluid, meclizine Prescription: Outpatient PT for vertigo Impression: Vertigo Plan: 1. Outpatient therapy was prescribed, he may do this in [place] or [place]. 2. You may use [id number] meclizine (Antivert) 25 -50mg every 6 to 12 hours PRN. 3. Increase your oral fluids. 4. Keep your appointment with Dr. Birmingham. Return to the ED as needed and as discussed. Definitive disposition and diagnosis as appropriate pending reevaluation and review of above. - Related Data Allergies Allergy/AdvReac Type Severity Reaction Status Date / Time No Known Allergies Allergy Verified 10/24/18 11:15 Home Meds: Home Meds Aspirin [Children's Aspirin] 81 mg PO BEDTIME 11/30/13 [History] Lisinopril 10 mg PO DAILY 11/30/13 [History] atorvaSTATin Calcium [Atorvastatin Calcium] 40 mg PO BEDTIME 11/30/13 [History] Cholecalciferol (Vitamin D3) [Vitamin D3] 4,000 units PO DAILY 07/31/18 [History ] Nitroglycerin 0.4 mg SL ASDIRECTED PRN 07/31/18 [History] Past Medical History HEENT History: Reports: Other (See Below) Other HEENT History: wears glasses Cardiovascular History: Reports: High Cholesterol, Hypertension, Other (See Below) (moderate coronary disease on CT scan. 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: Musculoskeletal History: Reports: None Neurological History: Reports: None Psychiatric History: Reports: Depression Endocrine/Metabolic History: Reports: None Hematologic History: Reports: None Immunologic History: Reports: None Oncologic (Cancer) History: Reports: None Dermatologic History: Reports: None - Infectious Disease History Infectious Disease History: Reports: Chicken Pox - Past Surgical History Head Surgeries/Procedures: Reports: None HEENT Surgical History: Reports: Tonsillectomy Cardiovascular Surgical History: Reports: None Respiratory Surgical History: Reports: None GI Surgical History: Reports: Other (See Below) Other GI Surgeries/Procedures: excision of pilonidal cyst Female Surgical History: Reports: Hysterectomy, Salpingo-Oophorectomy Endocrine Surgical History: Reports: None Neurological Surgical History: Reports: None Musculoskeletal Surgical History: Reports: None Oncologic Surgical History: Reports: None Dermatological Surgical History: Reports: None Social & Family History - Family History Family Medical History: Noncontributory - Caffeine Use Caffeine Use: Reports: Soda ED ROS GENERAL - Review of Systems Review Of Systems: ROS reveals no pertinent complaints other than HPI. ED EXAM, NEURO - Physical Exam Exam: See Below (See dictation) Course - Vital Signs Last Recorded V/S: Last Vital Signs Temp 95.6 F 10/24/18 11:11 Pulse 69 10/24/18 11:11 Resp 18 10/24/18 11:11 BP 157/75 H 10/24/18 11:11 Pulse Ox 98 10/24/18 11:11 Orthostatic Blood Pressure [ 143/81 Standing] Orthostatic Blood Pressure [ 143/79 Sitting] Orthostatic Blood Pressure [ 127/67 Supine] - Orders/Labs/Meds Orders: Active Orders 24 hr Category Date Time Status EKG Documentation Completion [RC] STAT Care 10/24/18 11:12 Active Orthostatic Vital Signs [RC] ASDIRECTED Care 10/24/18 11:12 Active Labs: Laboratory Tests 10/24/18 10/24/18 Range/Units 11:36 11:36 WBC 4.92 (4.0-11.0) K/uL RBC 4.47 (4.30-5.90) M/uL Hgb 14.0 (12.0-16.0) g/dL Hct 42.0 (36.0-46.0) % MCV 94.0 (80.0-98.0) fL MCH 31.3 (27.0-32.0) pg MCHC 33.3 (31.0-37.0) g/dL RDW Std Deviation 44.8 (28.0-62.0) fl RDW Coeff of Ziggy 13 (11.0-15.0) % Plt Count 170 (150-400) K/uL MPV 9.90 (7.40-12.00) fL Neut % (Auto) 66.3 (48.0-80.0) % Lymph % (Auto) 22.8 (16.0-40.0) % [place] % (Auto) 9.1 (0.0-15.0) % Eos % (Auto) 1.4 (0.0-7.0) % Baso % (Auto) 0.4 (0.0-1.5) % Neut # (Auto) 3.3 (1.4-5.7) K/uL Lymph # (Auto) 1.1 (0.6-2.4) K/uL [place] # (Auto) 0.5 (0.0-0.8) K/uL Eos # (Auto) 0.1 (0.0-0.7) K/uL Baso # (Auto) 0.0 (0.0-0.1) K/uL Nucleated RBC % 0.0 /100WBC Nucleated RBCs # 0 K/uL Sodium 141 (136-145) mmol/L Potassium 4.2 (3.5-5.1) mmol/L Chloride 104 (98-107) mmol/L Carbon Dioxide 26.1 (21.0-32.0) mmol/L BUN 13 (7.0-18.0) mg/dL Creatinine 0.7 (0.6-1.0) mg/dL Est Cr Clr Drug Dosing 78.01 mL/min Estimated GFR (MDRD) > 60.0 ml/min Glucose 105 (74-106) mg/dL Calcium 9.5 (8.5-10.1) mg/dL Total Bilirubin 0.6 (0.2-1.0) mg/dL AST 26 (15-37) IU/L ALT 42 (14-63) IU/L Alkaline Phosphatase 79 (46-116) U/L Troponin I < 0.050 (0.000-0.056) ng/mL Total Protein 6.9 (6.4-8.2) g/dL Albumin 4.0 (3.4-5.0) g/dL Globulin 2.9 (2.6-4.0) g/dL Albumin/Globulin Ratio 1.4 (0.9-1.6) Meds: Medications Discontinued Medications Generic Name Dose Route Start Last Admin Trade Name Freq PRN Reason Stop Dose Admin Sodium Chloride 1,000 mls @ 999 mls/hr 10/24/18 11:12 10/24/18 11:27 Normal Saline IV 10/24/18 12:12 999 mls/hr STAT ONE Administration Meclizine HCl 25 mg 10/24/18 11:22 10/24/18 11:31 Antivert PO 10/24/18 11:23 25 mg ONETIME ONE Administration Departure - Departure Time of Disposition: 12:35 Disposition: Home, Self-Care 01 Clinical Impression: Vertigo - Discharge Information Instructions: Vertigo, [id number] Referrals: PCP,None [Primary Care Provider] - Forms: ED Department Discharge Additional Instructions: The following information is given to patients seen in the emergency department who are being discharged to home. This information is to outline your options for follow-up care. We provide all patients seen in our emergency department with a follow-up referral. The need for follow-up, as well as the timing and circumstances, are variable depending upon the specifics of your emergency department visit. If you don't have a primary care physician on staff, we will provide you with a referral. We always advise you to contact your personal physician following an emergency department visit to inform them of the circumstance of the visit and for follow-up with them and/or the need for any referrals to a consulting specialist. The emergency department will also refer you to a specialist when appropriate. This referral assures that you have the opportunity for follow-up care with a specialist. All of these measure are taken in an effort to provide you with optimal care, which includes your follow-up. Under all circumstances we always encourage you to contact your private physician who remains a resource for coordinating your care. When calling for follow-up care, please make the office aware that this follow-up is from your recent emergency room visit. If for any reason you are refused follow-up, please contact the [facility] Emergency Department at and asked to speak to the emergency department charge nurse. [facility] [address] [place] [id number] [facility] [address] [place] [address] 1. Outpatient therapy was prescribed, he may do this in [place] or [place]. 2. You may use [id number] meclizine (Antivert) 25 -50mg every 6 to 12 hours PRN. 3. Increase your oral fluids. 4. Keep your appointment with Dr. Birmingham. Return to the ED as needed and as discussed. - My Orders Last 24 Hours: My Active Orders 10/24/18 11:12 EKG Documentation Completion [RC] STAT Orthostatic Vital Signs [RC] ASDIRECTED - Assessment/Plan Last 24 Hours: My Active Orders 10/24/18 11:12 EKG Documentation Completion [RC] STAT Orthostatic Vital Signs [RC] ASDIRECTED
--- NOTE | 2018-10-24 12:09 | CT ---
INDICATION: Dizziness. COMPARISON: CT head without intravenous contrast 01/11/2018. TECHNIQUE: CT head without intravenous contrast; coronal and sagittal reformats. FINDINGS: No evidence of intracranial hemorrhage. No mass lesions. No evidence of shift of the midline structures. The calvarium is unremarkable. The ventricular system, this subarachnoid cisterns and the cerebral sulci are unremarkable. IMPRESSION: 1. Negative unenhanced head CT. 2. No interval change when compared to 01/11/2018. Please note that all CT scans at this facility use dose modulation, iterative reconstruction, and/or weight-based dosing when appropriate to reduce radiation dose to as low as reasonably achievable. Dictated by Evie Godwin MD @ Oct 24 2018 12:06PM Signed by Dr. Evie Godwin @ Oct 24 2018 12:08PM
--- NOTE | 2018-10-24 12:14 | CR ---
INDICATION: Dizziness TECHNIQUE: Chest 1 views COMPARISON: August 01, 2017 FINDINGS: Cardiovascular and mediastinum: Heart size and vasculature are normal in caliber and appearance. Lungs and pleural spaces: Lungs are clear. No sign of infiltrate or mass. No sign of pleural effusion. No pneumothorax. Bones and soft tissues: No significant findings. IMPRESSION: No acute findings and no significant changes from the prior exam. Dictated by Walter Stanton MD @ Oct 24 2018 12:07PM Signed by Dr. Walter Stanton @ Oct 24 2018 12:12PM
[2018-10-24 12:40] LABS: CHLORIDE,CL 104 mmol/L (98-107); SODIUM,NA 141 mmol/L (136-145)
== END 2018-10-24 12:52 | disposition home or self-care (01) ==
LOC: MW.ED 11:08
DX: R42 Dizziness and giddiness (principal); I10 Essential (primary) hypertension; E78.00 Pure hypercholesterolemia, unspecified; Z79.82 Long term (current) use of aspirin; Z79.899 Other long term (current) drug therapy
CPT/HCPCS: 36415; 70450; 71045; 80053; 84484; 85025; 93005; 96360; 99285; A9270; J7040; 99284

== ENCOUNTER 2020-11-18 07:23 | Day surgery (SDC) | payer BC ==
[~2020-11-18 07:23] MED LIST changes: -ceFAZolin 2 GM in Premix Bag 1 BAG IV ONE
[2020-11-18] MEDS ORDERED: propofoL 50 ML ONE (07:27)
[2020-11-18] MEDS ORDERED: Lidocaine 2% 5 ML SDV ONE (07:37)
[2020-11-18] MEDS ORDERED: fentaNYL 100 MCG/2 ML SDV ONE (08:26)
--- NOTE | 2020-11-18 08:40 | PCM.PREANE ---
Preanesthetic Assessment - Anesthesia/Transfusion/Family Hx Anesthesia History: Prior Anesthesia Without Reaction Other Type of Anesthesia Reaction Comment: PT STATES HER SISTER HAD PROBLEMS WAKING UP AFTER ANESTHESIA Transfusion History: No Prior Transfusion(s) Intubation History: Unknown - Review of Systems General: No Symptoms Pulmonary: No Symptoms Cardiovascular: No Symptoms Gastrointestinal: No Symptoms Neurological: No Symptoms Other: Reports: None - Physical Assessment NPO Status Date: 11/18/20 NPO Status Time: 00:00 Vital Signs: Last Vital Signs Temp 97.3 F 11/18/20 07:30 Pulse 85 11/18/20 07:30 Resp 15 11/18/20 07:30 BP 133/84 11/18/20 07:30 Pulse Ox 98 11/18/20 07:30 Height: 5 ft 6 in Weight: 161 lb ASA Class: 3 Mental Status: Alert & Oriented x3 Airway Class: Mallampati = 2 Dentition: Reports: Normal Dentition ROM/Head Extension: Full Lungs: Clear to Auscultation, Normal Respiratory Effort Cardiovascular: Regular Rate, Regular Rhythm - Allergies Allergies/Adverse Reactions: Allergies Allergy/AdvReac Type Severity Reaction Status Date / Time No Known Allergies Allergy Verified 11/12/20 11:12 - Acknowledgements Anesthesia Type Planned: General Anesthesia Pt an Appropriate Candidate for the Planned Anesthesia: Yes Alternatives and Risks of Anesthesia Discussed w Pt/Guardian: Yes Pt/Guardian Understands and Agrees with Anesthesia Plan: Yes PreAnesthesia Questionnaire HEENT History: Reports: Other (See Below) Other HEENT History: wears glasses Cardiovascular History: Reports: CAD, High Cholesterol, Hypertension Other Cardiovascular History: sees Dr. 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: Musculoskeletal History: Reports: None Neurological History: Reports: None Psychiatric History: Reports: Anxiety Endocrine/Metabolic History: Reports: Vitamin D Deficiency Other Endocrine/Metabolic History: levels are currently normal Hematologic History: Reports: None Immunologic History: Reports: None Oncologic (Cancer) History: Reports: None Dermatologic History: Reports: None - Infectious Disease History Infectious Disease History: Reports: Chicken Pox - Past Surgical History Head Surgeries/Procedures: Reports: None HEENT Surgical History: Reports: Tonsillectomy Cardiovascular Surgical History: Reports: None Respiratory Surgical History: Reports: None GI Surgical History: Reports: Cholecystectomy, Colonoscopy, Other (See Below) Other GI Surgeries/Procedures: excision of pilonidal cyst Female Surgical History: Reports: Hysterectomy, Salpingo-Oophorectomy Other Female Surgeries/Procedures: ovarian cyst removal Endocrine Surgical History: Reports: None Neurological Surgical History: Reports: None Musculoskeletal Surgical History: Reports: None Oncologic Surgical History: Reports: None Dermatological Surgical History: Reports: None - SUBSTANCE USE Tobacco Use Status *Q: Former Tobacco User Tobacco Use Within Last Twelve Months: Pipe Days Per Week of Alcohol Use: 7 Number of Drinks Per Day: 2 Total Drinks Per Week: 14 Recreational Drug Use History: No - HOME MEDS Home Medications: Home Meds Aspirin [Children's Aspirin] 81 mg PO BEDTIME 11/30/13 [History] Lisinopril 10 mg PO QAM 11/30/13 [History] atorvaSTATin Calcium [Atorvastatin Calcium] 80 mg PO BEDTIME 11/30/13 [History] Cholecalciferol (Vitamin D3) [Vitamin D3] 2,000 units PO DAILY 07/31/18 [History] Nitroglycerin 0.4 mg SL ASDIRECTED PRN 07/31/18 [History] polyethylene glycoL 3350 [MiraLAX] 17 gm PO DAILY 11/12/20 [History] - CURRENT (IN HOUSE) MEDS Current Meds: Current Medications Lactated Ringer's (Ringers, Lactated) 1,000 mls @ 125 mls/hr IV ASDIRECTED STEFANO Last Admin: 11/18/20 07:40 Dose: 125 mls/hr Documented by: Sodium Chloride (Sodium Chloride 0.9% 10 Ml Syringe) 10 ml FLUSH ASDIRECTED PRN PRN Reason: Keep Vein Open Sodium Chloride (Sodium Chloride 0.9% 2.5 Ml Syringe) 2.5 ml FLUSH ASDIRECTED PRN PRN Reason: Keep Vein Open Sodium Chloride (Sodium Chloride 0.9% 10 Ml Syringe) 10 ml FLUSH ASDIRECTED PRN PRN Reason: Keep Vein Open Sodium Chloride (Sodium Chloride 0.9% 2.5 Ml Syringe) 2.5 ml FLUSH ASDIRECTED PRN PRN Reason: Keep Vein Open Sodium Chloride (Sodium Chloride 0.9% 10 Ml Sdv) 10 ml IV ASDIRECTED PRN PRN Reason: IV Use Discontinued Medications Fentanyl (Fentanyl 100 Mcg/2 Ml Sdv) Confirm Administered Dose 100 mcg .ROUTE .STK-MED ONE Stop: 11/18/20 08:27 Propofol (Diprivan 50 Ml) Confirm Administered Dose 50 mls @ as directed .ROUTE .STBackand-MED ONE Stop: 11/18/20 07:28 Lidocaine (Lidocaine 2% 5 Ml Sdv) Confirm Administered Dose 5 ml .ROUTE .STBackand-MED ONE Stop: 11/18/20 07:38
[2020-11-18] MEDS ORDERED: Glycopyrrolate 0.2 MG/ML SDV ONE (08:56)
[2020-11-18] MEDS ORDERED: ePHEDrine 50 MG/ML SDV ONE (08:56)
--- NOTE | 2020-11-18 09:21 | PCM.OPNOTE ---
- General Post-Op/Procedure Note Date of Surgery/Procedure: 11/18/20 Operative Procedure(s): Diagnostic colonoscopy Findings: Normal appearing colon. Random biposies of the asc, desc, transv, sigmoid colon and rectum Pre Op Diagnosis: Abdominal pain, change in bowel habits Post-Op Diagnosis: Normal colonoscopy Anesthesia Technique: MAC Primary Surgeon: Shelbi Juarez Condition: Good
--- NOTE | 2020-11-18 09:24 | PCM.POSTAN ---
POST ANESTHESIA ASSESSMENT - MENTAL STATUS Mental Status: Alert, Oriented - VITAL SIGNS Vital Signs: Last Vital Signs Temp 98.6 F 11/18/20 09:13 Pulse 68 11/18/20 09:13 Resp 20 11/18/20 09:18 BP 117/58 L 11/18/20 09:18 Pulse Ox 96 11/18/20 09:18 - RESPIRATORY Respiratory Status: Respiratory Rate WNL, Airway Patent, O2 Saturation Stable - CARDIOVASCULAR CV Status: Pulse Rate WNL, Blood Pressure Stable - GASTROINTESTINAL GI Status: No Symptoms - POST OP HYDRATION Hydration Status: Adequate & Stable
--- NOTE | 2020-11-18 09:25 | PCM48HPAN ---
Post Anesthesia Note - EVALUATION WITHIN 48HRS OF ANESTHETIC Vital Signs in Normal Range: Yes Patient Participated in Evaluation: Yes Respiratory Function Stable: Yes Airway Patent: Yes Cardiovascular Function Stable: Yes Hydration Status Stable: Yes Pain Control Satisfactory: Yes Nausea and Vomiting Control Satisfactory: Yes Mental Status Recovered: Yes Vital Signs: Last Vital Signs Temp 98.6 F 11/18/20 09:13 Pulse 68 11/18/20 09:13 Resp 20 11/18/20 09:18 BP 117/58 L 11/18/20 09:18 Pulse Ox 96 11/18/20 09:18
--- NOTE | 2020-11-18 11:52 | OR ---
SURGEON: SHELBI JUAREZ MD DATE OF PROCEDURE: 11/18/2020 PREOPERATIVE DIAGNOSES: Intermittent abdominal pain, change in bowel habits. POSTOPERATIVE DIAGNOSES: Normal colonoscopy. PROCEDURE PERFORMED: Diagnostic colonoscopy. PRIMARY SURGEON: Shelbi Juarez MD ANESTHESIA: MAC. INSTRUMENT USED: Olympus colonoscope. EXTENT OF EXAM: To the cecum. PREPARATION: Good. LIMITATIONS: None. INDICATIONS FOR EXAMINATION: The patient is a 64-year-old female who has had 2 years of intermittent abdominal pain. It can be sharp and crampy in nature. She has also noticed that she is more constipated. She has started taking MiraLAX for this. A recent CT scan showed a large stool burden within her colon. Decision was made to proceed with diagnostic colonoscopy. The patient and I discussed the procedure, expected perioperative course, and the risks including bleeding, infection, or damage to surrounding structures. She verbalized understanding and wishes to proceed. PROCEDURE IN DETAIL: The patient was brought to the endoscopy suite and placed in the left lateral decubitus position. A time-out was completed verifying the patient's name, age, date of , allergies, and procedure to be performed. Monitored anesthesia care was induced and continuous oxygen was provided via nasal cannula throughout the procedure. After adequate sedation was achieved, a digital rectal exam was performed. This exam was within normal limits. A well-lubricated colonoscope was inserted into the rectum and advanced under direct visualization to the level of the cecum. The cecum was identified by both visual and anatomic landmarks. A photograph was taken of the cecal cap as well as with the scope retroflexed within the cecum. The scope was then straightened out and fully withdrawn while examining the color, texture, anatomy, and integrity of mucosa from the cecum to the anal canal. The terminal ileum appeared normal. The colonic mucosa itself appeared normal with no evidence of any inflammation or ulceration. Random biopsies were taken of the ascending colon, transverse colon, descending colon, sigmoid colon, and rectum and sent to pathology for histologic review. The scope was brought into the rectum and retroflexed to allow visualization of the anal canal opening. The scope was then straightened out and fully withdrawn. The cecum to anus time was 15 minutes. The patient tolerated the procedure well and was transferred to the PACU in stable condition. ENDOSCOPIC DIAGNOSIS: Normal colonoscopy. RECOMMENDATIONS: Follow up in clinic in 2 weeks. ABHISHEK BRUNO /[id number]
== END 2020-11-18 09:55 | disposition home or self-care (01) ==
LOC: MW.SDS 07:23
PROVIDERS: ATTEND Surgery
DX: R19.4 Change in bowel habit (principal); I25.10 Atherosclerotic heart disease of native coronary artery without angina pectoris; I10 Essential (primary) hypertension; E78.00 Pure hypercholesterolemia, unspecified; E55.9 Vitamin D deficiency, unspecified; Z79.82 Long term (current) use of aspirin; Z79.899 Other long term (current) drug therapy; Z90.49 Acquired absence of other specified parts of digestive tract; Z98.890 Other specified postprocedural states; Z87.891 Personal history of nicotine dependence
CPT/HCPCS: 00811; 88305; J2704; J3010; J3490; J7120

== ENCOUNTER 2024-05-28 14:29 | Emergency (ER) | payer MEDICARE, BC ==
[2024-05-28] MEDS: Lidocaine 1% 5 ML VIAL INJECT ONE (16:49)
[2024-05-28] MEDS: Amoxicillin/Clavulanate K 875-125 MG Tab PO ONE (17:01)
== END 2024-05-28 17:06 | disposition home or self-care (01) ==
LOC: MW.ED 14:29
DX: N28.1 Cyst of kidney, acquired (principal); I25.10 Atherosclerotic heart disease of native coronary artery without angina pectoris; E78.00 Pure hypercholesterolemia, unspecified; I10 Essential (primary) hypertension; Z79.82 Long term (current) use of aspirin; Z79.899 Other long term (current) drug therapy; Z87.891 Personal history of nicotine dependence; Z75.8 Other problems related to medical facilities and other health care
CPT/HCPCS: 46050; 99283; A9270; J2003